=== PATIENT | female | born 1945 | race Caucasian/White ===

== ENCOUNTER 2021-07-13 04:34 | Inpatient (IN) | payer OTHER ==
[~2021-07-13] VITALS: Ht 170.2 cm; Wt 111.5 kg
--- NOTE | 2021-07-13 04:43 | NUR ---
INITIAL PT CONTACT. PT BIBA C/O GI BLEED X A FEW HOURS. BRIGHT RED VOMIT AND BRIGHT RED DIARRHEA, NOTED STARYING APPROX 4 HOURS AGO. PT REPORTS HAVING A POLYUP REMOVED APPROX ONE WEEK AGO AND BEGAN TAKING RX ELIQUIS AGAIN. PT IS PALE, DIAPHORETIC UPON ARRIVAL. ERP AT BEDSIDE. NO IV ACCESS UPON ARRIVAL. PER ERP ORDER, MASS TRANSFUSION AND UNCROSSMATCHED BLOOD ADMIN TO BE PERFORMED. PT SIGNED CONSENT, AT BEDSIDE.
[2021-07-13] MEDS ORDERED: [UNRECOGNIZED DRUG - OTHER] IV ONE (05:00)
[2021-07-13] MEDS ORDERED: PANTOPRAZOLE 80 MG in SODIUM CHLORIDE 0.9% 50 ML IVPB ONE (05:00)
[2021-07-13] MEDS ORDERED: ONDANSETRON 2MG/ML, 2ML IVPush ONE (05:00)
[2021-07-13] MEDS ORDERED: PANTOPRAZOLE 40 MG IV IVPush ONE (05:00)
[2021-07-13] MEDS ORDERED: HUM PROTHROMBIN CPLX IV ONE (05:00)
[2021-07-13 05:07] LABS: BASOPHILS % (AUTO) 1 % (0-1); EOSINOPHILS % (AUTO) 0 % (1-7); LYMPHOCYTES % (AUTO) 24 % (22-44); MEAN CORPUSCULAR HEMOGLOBIN 31.6 pg (27.0-34.8); MEAN CORPUSCULAR HGB CONC 33.4 g/dL (32.4-35.8); MEAN PLATELET VOLUME 7.7 fL (7.4-10.4); MONOCYTES % (AUTO) 5 % (2-9); NEUTROPHILS % (AUTO) 71 % (42-75); PLATELET COUNT 385 x10^3/uL (130-400); RED CELL DISTRIBUTION WIDTH 13.5 % (9.6-15.2)
[2021-07-13 05:09] LABS: ANION GAP 7 mmol/L (5-15); CALCIUM 8.7 mg/dL (8.5-10.1); CHLORIDE 103 mmol/L (98-107); CREATININE 1.12 mg/dL (0.55-1.02)
[2021-07-13 05:10] LABS: ALANINE AMINOTRANSFERASE 16 U/L (12-78); ALBUMIN 2.4 g/dL (3.4-5.0)
[2021-07-13 05:14] LABS: ALKALINE PHOSPHATASE 77 U/L (45-117); BILIRUBIN,TOTAL 0.4 mg/dL (0.2-1.0); TOTAL PROTEIN 5.5 g/dL (6.4-8.2); TROPONIN I < 0.015 ng/mL (0.000-0.045)
[2021-07-13] MEDS ORDERED: PANTOPRAZOLE 80 MG in SODIUM CHLORIDE 0.9% 100 ML IV SCH ×2 (05:30→06:00)
[2021-07-13] MEDS ORDERED: ONDANSETRON 2MG/ML, 2ML ONE ×2 (05:33→07:41)
[2021-07-13 05:36] LABS: INTERNATIONAL NORMALIZED RATIO 1.17 (0.93-1.1); PROTHROMBIN TIME 12.4 Seconds (9.6-11.5)
[2021-07-13] MEDS ORDERED: FENTANYL PF 100 MCG/2ML ONE ×2 (05:56→07:41)
--- NOTE | 2021-07-13 06:00 | NUR ---
REPORT GIVEN TO [employer]ER [employer]AME CHANGER. ALL QUESTIONS ANSWERED, WILL LOCATION DIRECTOR PT IN ED FOLLOWING COVID SWAB RESULTS.
[2021-07-13 06:15] VITALS: BP 100/39
[2021-07-13] MEDS ORDERED: SODIUM CHLORIDE 0.9% 1,000 ML IV SCH (06:30)
--- NOTE | 2021-07-13 06:35 | NUR ---
PT TRANSPORTED TO OR WITH ACCOUNT STRATEGIST AND GI PHYSICIAN AT BEDSIDE.
--- NOTE | 2021-07-13 06:50 | NUR ---
FIRST UNIT PRBC'S: START: 441, END:0454 SECOND UNIT PRBC'S: START:18, END:0534 THRID UNIT PRBC'S: 0534, END: 0558 KCENTRA STARTED 517. PLATELETS: START:527, END: 0540 FFP: START: 540, END:06 SEE PAPER CHARTING FOR FURTHER DETAIL.
[2021-07-13] MEDS ORDERED: GLUCAGON 1 MG ONE (06:51)
[2021-07-13] MEDS ORDERED: PROMETHAZINE 25 MG/ML, 1ML IVPush PRN (08:00)
[2021-07-13] MEDS ORDERED: HALOPERIDOL 5 MG/ML IV PRN (08:00)
[2021-07-13] MEDS ORDERED: METOCLOPRAMIDE 5 MG/ML, 2ML IVPush PRN (08:00)
[2021-07-13] MEDS ORDERED: OXYcodone 5 MG/5 ML ORAL.SOL UDC PO PRN (08:00)
[2021-07-13] MEDS ORDERED: FENTANYL PF 100 MCG/2ML IV PRN (08:00)
[2021-07-13] MEDS ORDERED: LABETALOL 5MG/ML, 20ML IV PRN (08:00)
[2021-07-13] MEDS ORDERED: ACETAMINOPHEN 325 MG TABLET PO PRN (08:00)
[2021-07-13] MEDS ORDERED: HYDROmorphone 1 MG/ML, 1ML INJ IVPush PRN (08:00)
[2021-07-13] MEDS ORDERED: MEPERIDINE/PF 25MG/0.5ML IVPush PRN (08:00)
[2021-07-13] MEDS ORDERED: EPHEDRINE 50 MG/ML, 1ML IVPush PRN (08:00)
[2021-07-13] MEDS ORDERED: LORazepam 2 MG/ML, 1ML IVPush PRN (08:00)
[2021-07-13] MEDS ORDERED: ONDANSETRON 2MG/ML, 2ML IVPush PRN (08:00)
[2021-07-13] MEDS ORDERED: hydrALAzine 20 MG/ML, 1ML IV PRN (08:00)
[2021-07-13] MEDS ORDERED: METHOCARBAMOL 1,000 MG in DEXTROSE 5% 100 ML IV PRN (08:00)
[2021-07-13 13:34] VITALS: BP 95/63
[2021-07-13] MEDS: SODIUM CHLORIDE 0.9% 1,000 ML IV SCH (13:55)
[2021-07-13] MEDS ORDERED: ROSU5TAB12 PO (14:33)
[2021-07-13] MEDS ORDERED: NIFE60TA13 PO (14:33)
[2021-07-13] MEDS ORDERED: VENL150T PO (14:33)
[2021-07-13] MEDS ORDERED: LOSA100T14 PO (14:33)
[2021-07-13] MEDS ORDERED: LEVO137C4 PO (14:33)
[2021-07-13] MEDS ORDERED: SEMA0.25 IJ (14:33)
[2021-07-13] MEDS ORDERED: RIVA20TA PO (14:33)
[2021-07-13] MEDS ORDERED: METF-734 PO (14:33)
[2021-07-13] MEDS ORDERED: OMEP20CA20 PO (14:33)
[2021-07-13] MEDS ORDERED: CHLO25TA PO (14:33)
[2021-07-13] MEDS: PANTOPRAZOLE 80 MG in SODIUM CHLORIDE 0.9% 100 ML IV SCH (15:14)
[2021-07-13] MEDS: INSULIN LISPRO 100 UNITS/ML, PEN SQ-INSULIN SCH ×2 (16:00→20:37)
[2021-07-13 16:40] VITALS: BP 102/65
[2021-07-13] MEDS ORDERED: ALBUMIN HUMAN 25% 100 ML IV ONE (17:30)
[2021-07-13 20:00] VITALS: BP 113/53
[2021-07-14] MEDS: PANTOPRAZOLE 80 MG in SODIUM CHLORIDE 0.9% 100 ML IV SCH ×2 (00:37→10:29)
[2021-07-14 03:46] VITALS: BP 103/65
[2021-07-14] MEDS: SODIUM CHLORIDE 0.9% 1,000 ML IV SCH ×3 (04:28→22:42)
[2021-07-14 05:29] LABS: BASOPHILS % (AUTO) 1 % (0-1); EOSINOPHILS % (AUTO) 1 % (1-7); LYMPHOCYTES % (AUTO) 34 % (22-44); MEAN CORPUSCULAR HEMOGLOBIN 31.4 pg (27.0-34.8); MEAN CORPUSCULAR HGB CONC 34.2 g/dL (32.4-35.8); MEAN PLATELET VOLUME 7.3 fL (7.4-10.4); MONOCYTES % (AUTO) 7 % (2-9); NEUTROPHILS % (AUTO) 58 % (42-75); PLATELET COUNT 209 x10^3/uL (130-400); RED BLOOD COUNT 2.71 x10^6/uL (3.82-5.3); RED CELL DISTRIBUTION WIDTH 14.7 % (9.6-15.2)
[2021-07-14 05:38] LABS: CHLORIDE 110 mmol/L (98-107)
[2021-07-14 05:42] LABS: ANION GAP 3 mmol/L (5-15); CALCIUM 7.9 mg/dL (8.5-10.1); CREATININE 0.64 mg/dL (0.55-1.02)
[2021-07-14] MEDS: INSULIN LISPRO 100 UNITS/ML, PEN SQ-INSULIN SCH ×4 (07:00→21:31)
[2021-07-14] MEDS ORDERED: DEXTROSE 50%, 50ML SYRINGE IVPush PRN (08:00)
[2021-07-14] MEDS ORDERED: DEXTROSE 4 GM TAB.CHEW PO PRN (08:00)
[2021-07-14] MEDS ORDERED: POTASSIUM CHLORIDE 40 MEQ in SODIUM CHLORIDE 0.9% 500 ML IV ONE (08:00)
[2021-07-14] MEDS ORDERED: GLUCAGON 1 MG IM PRN (08:00)
[2021-07-14] MEDS ORDERED: EPINEPHRINE SYRINGE 0.1 MG/ML, 10ML ONE (08:49)
[2021-07-14] MEDS: SODIUM CHLORIDE FLUSH 10ML SYR IVF SCH ×2 (09:26→21:31)
[2021-07-14 09:31] VITALS: BP 101/62
[2021-07-14 12:24] VITALS: BP 111/66
[2021-07-14] MEDS: LEVOTHYROXINE 137 MCG TABLET PO SCH (14:00)
[2021-07-14 21:20] VITALS: BP 132/76
[2021-07-15 01:54] VITALS: BP 97/59
[2021-07-15] MEDS: PANTOPRAZOLE 80 MG in SODIUM CHLORIDE 0.9% 100 ML IV SCH ×2 (02:54→12:58)
[2021-07-15 05:19] LABS: BASOPHILS % (AUTO) 1 % (0-1); EOSINOPHILS % (AUTO) 2 % (1-7); LYMPHOCYTES % (AUTO) 34 % (22-44); MEAN CORPUSCULAR HGB CONC 34.2 g/dL (32.4-35.8); MEAN PLATELET VOLUME 7.5 fL (7.4-10.4); MONOCYTES % (AUTO) 8 % (2-9); NEUTROPHILS % (AUTO) 55 % (42-75); PLATELET COUNT 205 x10^3/uL (130-400); RED BLOOD COUNT 2.71 x10^6/uL (3.82-5.3); RED CELL DISTRIBUTION WIDTH 14.7 % (9.6-15.2)
[2021-07-15 05:26] LABS: ANION GAP 3 mmol/L (5-15); CALCIUM 7.9 mg/dL (8.5-10.1); CHLORIDE 112 mmol/L (98-107)
[2021-07-15 05:28] LABS: CREATININE 0.57 mg/dL (0.55-1.02)
[2021-07-15] MEDS: LEVOTHYROXINE 137 MCG TABLET PO SCH (06:04)
[2021-07-15] MEDS: SODIUM CHLORIDE 0.9% 1,000 ML IV SCH (06:04)
[2021-07-15] MEDS: INSULIN LISPRO 100 UNITS/ML, PEN SQ-INSULIN SCH ×4 (07:00→20:59)
[2021-07-15 08:14] VITALS: BP 125/75
[2021-07-15] MEDS ORDERED: POTASSIUM PHOSPHATE 44 MEQ in SODIUM CHLORIDE 0.9% 500 ML IV ONE (08:30)
[2021-07-15] MEDS: SODIUM CHLORIDE FLUSH 10ML SYR IVF SCH ×2 (08:46→21:05)
[2021-07-15 12:06] VITALS: BP 117/70
[2021-07-15] MEDS: SUCRALFATE 1 GM/10 ML UDC PO SCH ×2 (16:59→21:05)
[2021-07-15 19:08] VITALS: BP 109/69
[2021-07-16 02:58] VITALS: BP 111/69
[2021-07-16] MEDS: SUCRALFATE 1 GM/10 ML UDC PO SCH ×4 (06:17→20:52)
[2021-07-16] MEDS: LEVOTHYROXINE 137 MCG TABLET PO SCH (06:17)
[2021-07-16] MEDS: INSULIN LISPRO 100 UNITS/ML, PEN SQ-INSULIN SCH ×4 (07:00→21:00)
[2021-07-16 07:20] LABS: BASOPHILS % (AUTO) 1 % (0-1); EOSINOPHILS % (AUTO) 2 % (1-7); LYMPHOCYTES % (AUTO) 32 % (22-44); MEAN CORPUSCULAR HEMOGLOBIN 31.8 pg (27.0-34.8); MEAN PLATELET VOLUME 7.3 fL (7.4-10.4); MONOCYTES % (AUTO) 7 % (2-9); NEUTROPHILS % (AUTO) 60 % (42-75); PLATELET COUNT 227 x10^3/uL (130-400); RED BLOOD COUNT 2.78 x10^6/uL (3.82-5.3); RED CELL DISTRIBUTION WIDTH 14.2 % (9.6-15.2)
[2021-07-16 07:25] LABS: CHLORIDE 114 mmol/L (98-107)
[2021-07-16 07:39] LABS: ANION GAP 4 mmol/L (5-15); CALCIUM 8.3 mg/dL (8.5-10.1); CREATININE 0.62 mg/dL (0.55-1.02)
[2021-07-16 08:15] VITALS: BP 125/70
[2021-07-16] MEDS: PANTOPRAZOLE 80 MG in SODIUM CHLORIDE 0.9% 100 ML IV SCH ×3 (09:37→20:53)
[2021-07-16] MEDS: SODIUM CHLORIDE FLUSH 10ML SYR IVF SCH ×2 (09:38→20:53)
[2021-07-16 13:40] VITALS: BP 118/68
[2021-07-16 20:15] VITALS: BP 119/73
[2021-07-17 01:25] VITALS: BP 109/73
[2021-07-17] MEDS: LEVOTHYROXINE 137 MCG TABLET PO SCH (05:47)
[2021-07-17] MEDS: PANTOPRAZOLE 80 MG in SODIUM CHLORIDE 0.9% 100 ML IV SCH ×2 (05:47→15:02)
[2021-07-17] MEDS: INSULIN LISPRO 100 UNITS/ML, PEN SQ-INSULIN SCH ×4 (07:00→21:38)
[2021-07-17 07:34] VITALS: BP 137/77
[2021-07-17] MEDS: SODIUM CHLORIDE FLUSH 10ML SYR IVF SCH ×2 (08:35→20:54)
[2021-07-17] MEDS: SUCRALFATE 1 GM/10 ML UDC PO SCH ×4 (08:35→20:54)
[2021-07-17 13:56] VITALS: BP 134/77
[2021-07-17] MEDS ORDERED: LIDOCAINE 1%, 10ML ONE (16:43)
[2021-07-17] MEDS ORDERED: FENTANYL PF 100 MCG/2ML ONE ×2 (16:53)
[2021-07-17] MEDS ORDERED: MIDAZOLAM 1 MG/ML, 5ML ONE (16:53)
[2021-07-17] MEDS ORDERED: FLUMAZENIL 0.1 MG/1 ML, 5ML ONE (16:54)
[2021-07-17] MEDS ORDERED: NALOXONE 1 MG/ML, 2ML ONE (16:54)
[2021-07-17 19:40] VITALS: BP 137/72
[2021-07-18 00:30] VITALS: BP 121/72
[2021-07-18] MEDS: PANTOPRAZOLE 80 MG in SODIUM CHLORIDE 0.9% 100 ML IV SCH ×2 (05:42→21:03)
[2021-07-18] MEDS: LEVOTHYROXINE 137 MCG TABLET PO SCH (05:42)
[2021-07-18 06:14] LABS: ANION GAP 5 mmol/L (5-15); CALCIUM 7.7 mg/dL (8.5-10.1); CHLORIDE 110 mmol/L (98-107)
[2021-07-18 06:15] LABS: CREATININE 0.53 mg/dL (0.55-1.02)
[2021-07-18] MEDS: INSULIN LISPRO 100 UNITS/ML, PEN SQ-INSULIN SCH ×4 (07:00→20:26)
[2021-07-18] MEDS ORDERED: POTASSIUM CHLORIDE 40 MEQ in SODIUM CHLORIDE 0.9% 500 ML IV ONE (07:30)
[2021-07-18 07:35] VITALS: BP 124/72
[2021-07-18] MEDS: SUCRALFATE 1 GM/10 ML UDC PO SCH ×4 (08:38→20:22)
[2021-07-18] MEDS: SODIUM CHLORIDE FLUSH 10ML SYR IVF SCH ×2 (09:30→20:22)
[2021-07-18 14:15] VITALS: BP 127/56
[2021-07-18 19:12] VITALS: BP 111/66
[2021-07-19 00:29] VITALS: BP 103/63
[2021-07-19 05:41] LABS: CHLORIDE 110 mmol/L (98-107)
[2021-07-19 05:45] LABS: ANION GAP 4 mmol/L (5-15); CALCIUM 7.8 mg/dL (8.5-10.1); CREATININE 0.63 mg/dL (0.55-1.02)
[2021-07-19] MEDS: LEVOTHYROXINE 137 MCG TABLET PO SCH (06:17)
[2021-07-19] MEDS: SUCRALFATE 1 GM/10 ML UDC PO SCH ×4 (06:17→20:57)
[2021-07-19] MEDS: INSULIN LISPRO 100 UNITS/ML, PEN SQ-INSULIN SCH ×4 (07:00→19:51)
[2021-07-19 08:18] VITALS: BP 120/70
[2021-07-19] MEDS: PANTOPRAZOLE 80 MG in SODIUM CHLORIDE 0.9% 100 ML IV SCH ×2 (09:47→23:11)
[2021-07-19] MEDS: SODIUM CHLORIDE FLUSH 10ML SYR IVF SCH ×2 (09:47→20:57)
[2021-07-19 13:01] VITALS: BP 114/68
[2021-07-19] MEDS ORDERED: OMNIPAQUE 350 MG/ML, 75ML BOTTLE ONE (16:50)
[2021-07-19 20:34] VITALS: BP 116/64
[2021-07-20] VITALS (10 sets, daily range): BP systolic 105–140; BP diastolic 62–82
[2021-07-20] MEDS: SUCRALFATE 1 GM/10 ML UDC PO SCH ×4 (05:54→21:12)
[2021-07-20] MEDS: LEVOTHYROXINE 137 MCG TABLET PO SCH (05:54)
[2021-07-20] MEDS: INSULIN LISPRO 100 UNITS/ML, PEN SQ-INSULIN SCH ×4 (07:00→21:00)
[2021-07-20] MEDS ORDERED: SODIUM CHLORIDE 0.9% 250 ML IV ONE (08:00)
[2021-07-20] MEDS ORDERED: ACETAMINOPHEN 325 MG TABLET PO ONE (08:00)
[2021-07-20] MEDS: SODIUM CHLORIDE FLUSH 10ML SYR IVF SCH ×2 (09:00→21:12)
[2021-07-20] MEDS: PANTOPRAZOLE 80 MG in SODIUM CHLORIDE 0.9% 100 ML IV SCH ×2 (10:52→23:16)
[2021-07-20] MEDS: VENLAFAXINE 75 MG CAP ER PO SCH (10:53)
[2021-07-20] MEDS ORDERED: FLUMAZENIL 0.1 MG/1 ML, 5ML ONE (12:29)
[2021-07-20] MEDS ORDERED: MIDAZOLAM 1 MG/ML, 5ML ONE ×2 (12:29)
[2021-07-20] MEDS ORDERED: FENTANYL PF 100 MCG/2ML ONE ×2 (12:29)
[2021-07-20] MEDS ORDERED: NALOXONE 1 MG/ML, 2ML ONE (12:29)
[2021-07-20] MEDS ORDERED: LIDOCAINE 1%, 20ML ONE (12:31)
[2021-07-20] MEDS ORDERED: ALBUTEROL-IPRATROPIUM MDI INH INH PRN (22:30)
[2021-07-21 00:54] VITALS: BP 152/70
[2021-07-21] MEDS: SUCRALFATE 1 GM/10 ML UDC PO SCH ×2 (05:56→09:47)
[2021-07-21] MEDS: LEVOTHYROXINE 137 MCG TABLET PO SCH (05:56)
[2021-07-21] MEDS: INSULIN LISPRO 100 UNITS/ML, PEN SQ-INSULIN SCH ×2 (07:00→11:44)
[2021-07-21 08:11] VITALS: BP 134/70
[2021-07-21] MEDS: SODIUM CHLORIDE FLUSH 10ML SYR IVF SCH (09:00)
[2021-07-21] MEDS ORDERED: FUROSEMIDE 20 MG/2 ML IV ONE (09:30)
[2021-07-21] MEDS: VENLAFAXINE 75 MG CAP ER PO SCH (09:47)
[2021-07-21] MEDS ORDERED: SUCR1ORA5 PO (14:21)
[2021-07-21] MEDS ORDERED: OMEP40CA8 PO (14:21)
== END 2021-07-21 17:29 | disposition home health service (06) | DRG 919 ==
LOC: ED 05:55 → EDIP 06:00 → 4EST 13:40
PROVIDERS: ADMIT Internal Medicine; ATTEND Internal Medicine
PROC: 0W3P8ZZ Control Bleeding in Gastrointestinal Tract, Via Natural or Artificial Opening Endoscopic (ICD-10-PCS; 2021-07-13)
PROC: 3E0G8GC Introduction of Other Therapeutic Substance into Upper GI, Via Natural or Artificial Opening Endoscopic (ICD-10-PCS; 2021-07-13)
PROC: 02HV33Z Insertion of Infusion Device into Superior Vena Cava, Percutaneous Approach (ICD-10-PCS; 2021-07-17)
PROC: B548ZZA Ultrasonography of Superior Vena Cava, Guidance (ICD-10-PCS; 2021-07-17)
PROC: B5181ZA Fluoroscopy of Superior Vena Cava using Low Osmolar Contrast, Guidance (ICD-10-PCS; 2021-07-17)
PROC: 30233K1 Transfusion of Nonautologous Frozen Plasma into Peripheral Vein, Percutaneous Approach (ICD-10-PCS; principal; 2021-07-19)
PROC: 30233N1 Transfusion of Nonautologous Red Blood Cells into Peripheral Vein, Percutaneous Approach (ICD-10-PCS; 2021-07-19)
PROC: 30233R1 Transfusion of Nonautologous Platelets into Peripheral Vein, Percutaneous Approach (ICD-10-PCS; 2021-07-19)
PROC: 06H03DZ Insertion of Intraluminal Device into Inferior Vena Cava, Percutaneous Approach (ICD-10-PCS; 2021-07-20)
DX: K91.840 Postprocedural hemorrhage of a digestive system organ or structure following a digestive system procedure (principal); R57.8 Other shock; I26.99 Other pulmonary embolism without acute cor pulmonale; D62 Acute posthemorrhagic anemia; D68.9 Coagulation defect, unspecified; I82.412 Acute embolism and thrombosis of left femoral vein; E11.65 Type 2 diabetes mellitus with hyperglycemia; E78.5 Hyperlipidemia, unspecified; F19.10 Other psychoactive substance abuse, uncomplicated; F32.9 Major depressive disorder, single episode, unspecified; I10 Essential (primary) hypertension; K31.7 Polyp of stomach and duodenum; Y83.8 Other surgical procedures as the cause of abnormal reaction of the patient, or of later complication, without mention of misadventure at the time of the procedure; Z79.01 Long term (current) use of anticoagulants; Z86.711 Personal history of pulmonary embolism; Z86.718 Personal history of other venous thrombosis and embolism; Z90.710 Acquired absence of both cervix and uterus; Z88.1 Allergy status to other antibiotic agents
CPT/HCPCS: 36415; 36430; 36556; 36573; 37191; 37244; 71045; 71275; 76937; 80048; 80053; 82962; 83605; 83690; 83735; 84100; 84484; 85014; 85018; 85025; 85610; 85730; 86850; 86900; 86923; 87635; 93005; 93970; 96374; 99156; 99157; 99291; C1880; G0378; J2250; J2405; J3010; J3480; P9047; Q9967; C1751; C1760; C1769; C1894; C9113; C9132; J1610; J1940; J2310; J7030; J7040; J7050; P9016; P9017; P9035